=== PATIENT | male | born 1980 | race Asian ===

== ENCOUNTER → 2016-06-29 | Outpatient (CLI) | payer OTHER ==
--- NOTE | 2016-06-29 11:42 | DIAGNOSTIC IMAGING REPORT ---
RIGHT ELBOW MIN 3 VIEWS ROUTINE CLINICAL HISTORY: Right elbow pain and swelling. COMPARISON: None. DISCUSSION: The fat pads are not displaced. No fractures or dislocations are visualized. There are no erosive or destructive changes. IMPRESSION: No fractures or dislocations identified. Electronically signed by: Branden Johnson M.D. 06/29/2016 11:41 AM Dictated Date/Time: 06/29/2016 11:40 AM
== END | disposition home or self-care (01) ==
LOC: C.RAD1850 11:12
PROVIDERS: ATTEND Internal Medicine Rheumatology
DX: M25.521 Pain in right elbow (principal); M25.421 Effusion, right elbow